=== PATIENT | male | born 1990 | race Caucasian/White ===

== ENCOUNTER 2022-10-30 16:13 | Emergency (ER) | payer SELFPAY ==
--- NOTE | 2022-10-30 20:05 | EDPHYS ---
Physician Documentation [facility] Name: Kemal Conrad Age: 32 yrs Sex: Male : 1990 Arrival Date: 10/30/2022 Time: 16:16 Bed 9 Private MD: ED Physician Mejia Franklin HPI: 10/30 16:28 This 32 yrs old Male presents to ER via EMS with complaints of SWALLOWED RAZOR. kb 16:28 The patient presents with abdominal pain in the left lower quadrant. Onset: The kb symptoms/episode began/occurred today. The symptoms do not radiate. Associated signs and symptoms: Pertinent positives: vomiting blood. The symptoms are described as constant. Modifying factors: The symptoms are alleviated by nothing, the symptoms are aggravated by pressure. Severity of pain: At its worst the pain was moderate in the emergency department the pain is unchanged. The patient has not experienced similar symptoms in the past. The patient has not recently seen a physician. Pt states he swallowed a razor blade 2 days ago and is having LLQ pain with hematemesis today. . Historical: - Allergies: 16:19 Morphine; ld1 - PMHx: 16:19 Depressive disorder; ld1 - Immunization history:: Adult Immunizations up to date, Client reports receiving the 2nd dose of the Covid vaccine. - Social history:: Smoking status: Patient denies any tobacco usage or history of. Patient uses street drugs, Methamphetamine (Meth) Patient/guardian denies using alcohol. ROS: 16:27 Constitutional: Negative for fever, chills, and weight loss. kb 16:27 Abdomen/GI: Positive for abdominal pain, hematemesis. 16:27 All other systems are negative. Exam: 16:27 Constitutional: This is a well developed, well nourished patient who is awake, alert, kb and in no acute distress. Head/Face: Normocephalic, atraumatic. ENT: Moist Mucous membranes Cardiovascular: Regular rate and rhythm with a normal S1 and S2. No gallops, murmurs, or rubs. No pulse deficits. Respiratory: Respirations even and unlabored. No increased work of breathing. Talking in full sentences Skin: Warm, dry with normal turgor. Normal color. MS/ Extremity: Pulses equal, no cyanosis. Neurovascular intact. Full, normal range of motion. Neuro: Awake and alert, GCS 15, oriented to person, place, time, and situation. Moves all extremities. Normal gait. Psych: Awake, alert, with orientation to person, place and time. Behavior, mood, and affect are within normal limits. 16:27 Abdomen/GI: Inspection: abdomen appears normal, Bowel sounds: normal, Palpation: soft, in all quadrants, mild abdominal tenderness, in the left lower quadrant. Vital Signs: 16:17 BP 151 / 90; Pulse 97; Resp 18; Temp 99.4(O); Pulse Ox 97% on R/A; Weight 81.65 kg; ld1 Height 5 ft. 10 in. (177.80 cm); Pain 0/10; 17:19 BP 122 / 94; Pulse 101; Resp 18; Pulse Ox 97% on R/A; ld1 19:31 BP 133 / 100; Pulse 100; Resp 18; Pulse Ox 94% on R/A; em6 20:37 BP 147 / 95; Pulse 98; Resp 18; Pulse Ox 96% ; em6 21:45 BP 143 / 99; Pulse 98; Resp 18; Pulse Ox 97% on R/A; em6 22:55 BP 133 / 95; Pulse 98; Resp 18; Pulse Ox 97% on R/A; em6 16:17 Body Mass Index 25.83 (81.65 kg, 177.80 cm) ld1 MDM: 16:17 Patient medically screened. kb 16:28 Data reviewed: vital signs, nurses notes. Data interpreted: Pulse oximetry: on room air kb is 97 %. Interpretation: normal. 19:11 Transition of care: After a detail discussion of the patient's case, care is kb transferred to Mejia Franklin MD. 19:38 ED course: Pt handed off to me at shift change, unable to get IV, patient is known drug rn user and presents from rehab, patient even stated to nursing that will need "one in neck or femoral" as usual. Changed to stick for blood and ct abdomen without contrast as well as KUB. Pt walks past station actively texting on phone and does not appear to be in acute distress. . 20:02 ED course: CT shows razor blade in stomach, no free air noted by me. CBC sent. Will rn need to be transferred without GI availability here, sharp foreign body in stomach, and hematemesis. . 20:12 ED course: Pt refusing IV attempt by charge nurse. . rn 10/30 16:24 Order name: CBC with Diff; Complete Time: 20:19 kb 10/30 16:24 Order name: CMP; Complete Time: 20:37 kb 10/30 16:24 Order name: Lipase; Complete Time: 20:37 kb 10/30 19:05 Order name: Abdomen 1 View (KUB) XRAY; Complete Time: 20:19 kb 10/30 22:02 Order name: SARS RAPID kl 10/30 16:24 Order name: Labs collected and sent; Complete Time: 23:54 kb 10/30 19:24 Order name: CT Abd/Pelvis - Without Contrast; Complete Time: 20:19 rn Administered Medications: 20:34 Drug: Valium (diazepam) 5 mg Route: PO; em6 21:29 Follow up: Response: No adverse reaction em6 Disposition: 10/31 01:28 Co-signature as Attending Physician, Mejia Franklin MD. rn Disposition Summary: 10/30/22 20:03 Transfer Ordered Transfer Location: [facility] rn Reason: Higher level of care rn Condition: Stable rn Problem: new rn Symptoms: have improved rn Accepting Physician: (10/30/22 23:55) em6 Diagnosis - Hematemesis rn - Foreign body in stomach - Razor blade rn Forms: - Medication Reconciliation Form rn - SBAR form rn Signatures: Dispatcher [employer] EDMerlyn Miranda, TICKETER-C TICKETER-Ckb Mejia Franklin MD MD rn Dibbern, Lauren, RN RN ld1 Odalis Melendez RN RN em6 Corrections: (The following items were deleted from the chart) 10/30 16:19 16:19 Allergies: No Known Allergies; ld1 ld1 19:28 16:25 Abdomen Pelvis W Con+CT.RAD.BRZ ordered. EDMS EDMS 23:54 16:24 IV Saline Lock ordered. kb em6 23:55 20:03 rn em6
--- NOTE | 2022-10-30 20:05 | ER ---
Nurse's Notes [facility] Name: Kemal Conrad Age: 32 yrs Sex: Male : 1990 Arrival Date: 10/30/2022 Time: 16:16 Bed 9 Private MD: Diagnosis: Hematemesis;Foreign body in stomach-Razor blade Presentation: 10/30 16:17 Chief complaint: EMS states: Toned out to rehab center in [place] for swallowing razor ld1 blade two days ago due to a bet. Coronavirus screen: At this time, the client does not indicate any symptoms associated with coronavirus-19. Ebola Screen: No symptoms or risks identified at this time. Initial Sepsis Screen: Does the patient meet any 2 criteria? No. Patient's initial sepsis screen is negative. Does the patient have a suspected source of infection? No. Patient's initial sepsis screen is negative. Risk Assessment: Do you want to hurt yourself or someone else? Patient reports no desire to harm self or others. Onset of symptoms was October 30, 2022. 16:17 Method Of Arrival: EMS: [facility] ld1 16:17 Acuity: ZULEYMA 3 ld1 20:14 Note pt refusing further IV attempts Pt educated on need for admit diagnosis and need kl for transfer pt continues to refuse Provider notified. Triage Assessment: 16:19 General: Appears in no apparent distress. comfortable, Behavior is calm, cooperative, ld1 appropriate for age. Pain: Denies pain. EENT: No signs and/or symptoms were reported regarding the EENT system. Neuro: Level of Consciousness is awake, alert, obeys commands, Oriented to person, place, time, situation. Cardiovascular: Capillary refill < 3 seconds Patient's skin is warm and dry. Respiratory: Airway is patent Respiratory effort is even, unlabored. GI: Abdomen is flat, non-distended. : No signs and/or symptoms were reported regarding the genitourinary system. Derm: No signs and/or symptoms reported regarding the dermatologic system. Musculoskeletal: No signs and/or symptoms reported regarding the musculoskeletal system. Historical: - Allergies: 16:19 Morphine; ld1 - PMHx: 16:19 Depressive disorder; ld1 - Immunization history:: Adult Immunizations up to date, Client reports receiving the 2nd dose of the Covid vaccine. - Social history:: Smoking status: Patient denies any tobacco usage or history of. Patient uses street drugs, Methamphetamine (Meth) Patient/guardian denies using alcohol. Screenin:32 [facility] ED Fall Risk Assessment (Adult) History of falling in the last 3 months, em6 including since admission No falls in past 3 months (0 pts) Confusion or Disorientation No (0 pts) Intoxicated or Sedated No (0 pts) Impaired Gait No (0 pts) Mobility Assist Device Used No (0 pt) Altered Elimination No (0 pt) Score/Fall Risk Level 0 - 2 = Low Risk Oriented to surroundings, Maintained a safe environment, Educated pt \T\ family on fall prevention, incl call for assistance when getting out of bed, Assessed \T\ reinforced patient's understanding of fall precautions, Provided non-skid footwear, Hourly rounding (assess needs \T\ fall precautionary measures) done, Used ambulatory aids as needed (educated on \T\ assisted with), Used gait belt as appropriate. Abuse screen: Denies threats or abuse. Nutritional screening: No deficits noted. Tuberculosis screening: No symptoms or risk factors identified. Assessment: 17:32 Reassessment: see triage assessment. em6 18:55 Reassessment: STUART Stephens at bedside for US guided IV placement. jl7 19:31 Reassessment: Patient appears in no apparent distress at this time. No changes from em6 previously documented assessment. Patient and/or family updated on plan of care and expected duration. Pain level reassessed. Patient is alert, oriented x 3, equal unlabored respirations, skin warm/dry/pink. STUART VIVAS attempted US guided IV placement. Lab was called to come and obtain blood. 19:35 Reassessment: patient left to X-ray with tech in wheelchair. em6 19:47 Reassessment: patient is back from X-RAY connected to monitor. Rafaela CARY is at bedside em6 attempting to collect blood. Neuro: Level of Consciousness is awake, alert, obeys commands, Oriented to person, place, time, situation. Respiratory: Airway is patent Respiratory effort is even, unlabored. 20:30 Reassessment: Patient appears in no apparent distress at this time. No changes from em6 previously documented assessment. Patient and/or family updated on plan of care and expected duration. Pain level reassessed. Patient is alert, oriented x 3, equal unlabored respirations, skin warm/dry/pink. 21:30 Reassessment: Patient appears in no apparent distress at this time. No changes from em6 previously documented assessment. Patient and/or family updated on plan of care and expected duration. Pain level reassessed. Patient is alert, oriented x 3, equal unlabored respirations, skin warm/dry/pink. 22:30 Reassessment: Patient appears in no apparent distress at this time. No changes from em6 previously documented assessment. Patient and/or family updated on plan of care and expected duration. Pain level reassessed. Patient is alert, oriented x 3, equal unlabored respirations, skin warm/dry/pink. 23:33 Reassessment: Patient appears in no apparent distress at this time. No changes from em6 previously documented assessment. Patient and/or family updated on plan of care and expected duration. Pain level reassessed. Patient is alert, oriented x 3, equal unlabored respirations, skin warm/dry/pink. report given to rolando cary from [facility]. 23:54 Reassessment: report has been given to [facility]. em6 Vital Signs: 16:17 BP 151 / 90; Pulse 97; Resp 18; Temp 99.4(O); Pulse Ox 97% on R/A; Weight 81.65 kg; ld1 Height 5 ft. 10 in. (177.80 cm); Pain 0/10; 17:19 BP 122 / 94; Pulse 101; Resp 18; Pulse Ox 97% on R/A; ld1 19:31 BP 133 / 100; Pulse 100; Resp 18; Pulse Ox 94% on R/A; em6 20:37 BP 147 / 95; Pulse 98; Resp 18; Pulse Ox 96% ; em6 21:45 BP 143 / 99; Pulse 98; Resp 18; Pulse Ox 97% on R/A; em6 22:55 BP 133 / 95; Pulse 98; Resp 18; Pulse Ox 97% on R/A; em6 16:17 Body Mass Index 25.83 (81.65 kg, 177.80 cm) ld1 ED Course: 16:16 Patient arrived in ED. ld1 16:17 Merlyn Mercado FNP-C is [facility]. kb 16:17 Gabriel Schneider MD is Attending Physician. kb 16:19 Triage completed. ld1 16:19 Arm band placed on right wrist. ld1 17:32 Odalis Melendez, RN is Primary Nurse. em6 17:33 Bed in low position. Call light in reach. Side rails up X 1. traffic monitor specialist on. Pulse em6 ox on. NIBP on. Warm blanket given. 18:15 Missed attempt(s): 22 gauge in right forearm. Bleeding controlled, band aid applied, jl7 catheter tip intact. 18:30 Missed attempt(s): 22 gauge in right upper arm. Bleeding controlled, band aid applied, jl7 catheter tip intact. 18:40 Missed attempt(s): 24 gauge in right upper arm. Bleeding controlled, band aid applied, jl7 catheter tip intact. 19:07 Attending Physician role handed off by Gabriel Schneider MD rn 19:07 Mejia Franklin MD is Attending Physician. rn 19:35 Abdomen 1 View (KUB) XRAY In Process Unspecified. EDMS 19:39 CT Abd/Pelvis - Without Contrast In Process Unspecified. EDMS 20:31 initiated a transfer with Rosa from [facility]. mw2 21:[address] Franklin with the School Superintendent from [facility]. mw2 22:22 Rosa from [facility] called and will give admin approval when we mw2 get the covid result back. 22:23 SARS RAPID Sent. ds4 23:55 No provider procedures requiring assistance completed. Patient did not have IV access em6 during this emergency room visit. Administered Medications: 20:34 Drug: Valium (diazepam) 5 mg Route: PO; em6 21:29 Follow up: Response: No adverse reaction em6 Medication: 23:55 VIS not applicable for this client. em6 Outcome: 20:03 ER care complete, transfer ordered by . rn 23:55 Transferred by ground EMS to [facility], [facility], Transfer form completed. em6 23:55 Condition: stable 23:55 Instructed on the need for transfer, Demonstrated understanding of instructions. 23:55 Patient left the ED. em6 Signatures: Dispatcher [employer] EDMS Merlyn Mercado, CRAWLER TRACTOR OPERATOR-C JEANETTE-Kassandra Odell RN Mejia Salgado MD MD rn Swanson, Donovan ds4 Holly Sanchez RN RN jl7 Olvin Frankel mw2 Elle Harris RN RN ld1 Odalis Melendez RN RN em6 Corrections: (The following items were deleted from the chart) 16:19 16:19 Allergies: No Known Allergies; ld1 ld1 16:20 16:17 BP 151 / 90; Pulse 97bpm; Pulse Ox 97% RA; Temp 99.4F Oral; ld1 ld1 19:49 19:47 Reassessment: patient is back from X-RAY connected to monitor em6 em6 23:35 23:33 Reassessment: report given to rolando cary from [facility] em6 em6
[2022-10-30 20:14] LABS: Hematocrit 38.2 % (39.6-49.0); MCV 83.9 fL (80-100); MPV 7.7 fL (7.6-11.3); RBC Red Blood Cell Count 4.56 M/uL (4.33-5.43)
--- NOTE | 2022-10-30 20:15 | RAD REPORT ---
EXAM DESCRIPTION: CTAbdomen Pelvis Wo Contrast - 10/30/2022 7:38 pm CLINICAL HISTORY: swallowed razor blade 2 days ago, hematemesis COMPARISON: No comparisonsNo comparisons TECHNIQUE: CT of the abdomen and pelvis was performed. All CT scans are performed using dose optimization technique as appropriate and may include automated exposure control or mA/KV adjustment according to patient size. FINDINGS: Lower chest: No acute abnormality. Liver: No acute abnormality or suspicious lesions. Biliary: No biliary ductal dilatation. Stomach: Metallic foreign body in the stomach. Surgical changes along the stomach. Duodenum: No significant focal abnormality. Pancreas: No significant abnormality. Spleen: Splenectomy Adrenal: No suspicious lesions. Kidney/ureter: No hydronephrosis. No renal calculi. Retroperitoneum: No retroperitoneal adenopathy. Vascular: No aneurysm. Bowel: Moderate stool noted. Likely prior appendectomy.. Wall thickening versus underdistention of th e descending colon to the rectum. Peritoneum: No ascites or free air. Bladder: Grossly unremarkable. Reproductive: No adnexal masses. Bones: No acute fracture. Other: n/a IMPRESSION: Metallic foreign body within the stomach may represent reported razor blade ingestion. N o evidence of perforation or free air. Wall thickening versus underdistention of the descending colon to the rectum. Colitis not excluded.
--- NOTE | 2022-10-30 20:17 | RAD REPORT ---
EXAM DESCRIPTION: RAD - Abdomen 1 View (KUB) - 10/30/2022 7:33 pm CLINICAL HISTORY: r/o fb COMPARISON: No comparisons FINDINGS: Nonobstructive bowel gas pattern. No acute osseous abnormality.Visualized lungs are unrema rkable.No abnormal calcifications. Ingested metallic foreign body which may represent a razor blade i n the stomach. Moderate colonic stool. IMPRESSION: Nonobstructive bowel gas pattern. Metallic foreign body overlying the stomach.
[2022-10-30 20:37] LABS: Albumin 4.1 g/dL (3.4-5.0); Bilirubin Total 0.3 mg/dL (0.2-1.0); Potassium 3.8 mmol/L (3.5-5.1); Protein, Total 7.8 g/dL (6.4-8.2)
[2022-10-30] MEDS ORDERED: DIAZEPAM 5 MG TABLET ONE (20:38)
[2022-10-30 23:15] LABS: SARS-CoV-2 Antigen Rapid Res Negative (Negative)
[2022-10-31 00:41] VITALS: TEMP 99.4
[2022-10-31 00:46] VITALS: O2SAT 97
[2022-10-31 00:47] VITALS: BP 133/95
== END 2022-10-30 23:55 | disposition short-term general hospital (02) ==
LOC: ER 16:13
DX: T18.2XXA Foreign body in stomach, initial encounter (principal); Z20.822 Contact with and (suspected) exposure to COVID-19; Z88.5 Allergy status to narcotic agent
CPT/HCPCS: 36415; 74018; 74176; 80053; 83690; 85025; 87811; 99285